=== PATIENT | female | born 1960 | race Caucasian/White ===

== ENCOUNTER 2020-09-23 21:11 | Inpatient (IN) | payer MEDICARE ==
[2020-09-23 21:43] LABS: HEMATOCRIT 16.4 % (36.0-47.0); MEAN CORPUSCULAR HEMOGLOBIN 28.8 pg (27.0-33.4); MEAN CORPUSCULAR HGB CONC 34.6 g/dL (32.0-36.0); MEAN CORPUSCULAR VOLUME 83 fl (80-97); RED BLOOD COUNT 1.98 10^6/uL (3.72-5.28); RED CELL DISTRIBUTION WIDTH 20.1 % (11.5-14.0)
[2020-09-23 21:58] LABS: ALBUMIN 3.8 g/dL (3.5-5.0); ALKALINE PHOSPHATASE 74 U/L (38-126); ANION GAP 14 (5-19); ASPARTATE AMINO TRANSFERASE 28 U/L (14-36); BILIRUBIN,DIRECT 0.2 mg/dL (0.0-0.4); BILIRUBIN,TOTAL 0.6 mg/dL (0.2-1.3); BLOOD UREA NITROGEN 11 mg/dL (7-20); CARBON DIOXIDE 25 mmol/L (22-30); CHLORIDE 91 mmol/L (98-107); CREATINE KINASE 198 U/L (30-135); GLUCOSE 208 mg/dL (75-110); TOTAL PROTEIN 6.5 g/dL (6.3-8.2)
--- NOTE | 2020-09-23 21:59 | ER Document Report ---
ED General - General Chief Complaint: Arrhythmia Stated Complaint: A FIB WITH RVR Time Seen by Provider: 09/23/20 21:44 Notes: Patient is a 60-year-old female who comes emergency department for chief complaint of lightheadedness, weakness, and generalized shortness of breath for the past 4 days. Patient comes by EMS, she was found to have a heart rate in the 170s, she has a history of atrial fibrillation and is on Cardizem at home, she was given 25 mg Cardizem bolus and 750 cc IV fluid bolus. After this heart rate reduced to the 90s. Patient states that she has not been eating much and she has missed doses of her Cardizem over the past day or 2. She is on Pradaxa. Patient also states she has a history of lung cancer and she is currently on chemotherapy following with [facility]. She denies fever, chest pain, headache, abdominal pain. She also has a history of COPD and is on 3 L nasal cannula at all times. - Related Data Allergies/Adverse Reactions: acetaminophen [From Lortab] Allergy (Verified 09/23/20 21:45) hydrocodone [From Lortab] Allergy (Verified 09/23/20 21:45) Past Medical History - General Information source: Patient - Social History Smoking Status: Current Every Day Smoker Frequency of alcohol use: None Drug Abuse: None Lives with: Family Family History: Reviewed & Not Pertinent - Past Medical History Cardiac Medical History: Reports: Hx Atrial Fibrillation Pulmonary Medical History: Reports: Hx COPD Endocrine Medical History: Reports: Hx Diabetes Mellitus Type 2 - Immunizations Immunizations up to date: Yes Hx Diphtheria, Pertussis, Tetanus Vaccination: Yes Review of Systems - Review of Systems Constitutional: See HPI EENT: No symptoms reported Cardiovascular: See HPI Respiratory: See HPI Gastrointestinal: No symptoms reported Genitourinary: No symptoms reported Female Genitourinary: No symptoms reported Musculoskeletal: No symptoms reported Skin: No symptoms reported Hematologic/Lymphatic: No symptoms reported Neurological/Psychological: No symptoms reported Physical Exam - Vital signs Vitals: Resp 20 09/23/20 21:15 - Notes Notes: GENERAL: Slightly pale but alert, conversational, does not appear to be in distress HEAD: Normocephalic, atraumatic. EYES: Pupils equal, round, and reactive to light. Extraocular movements intact. ENT: Oral mucosa moist, tongue midline. Oropharynx unremarkable. Airway patent. Nares patent, sinuses non-tender, ear canals unremarkable, TM's intact. NECK: Full range of motion. Supple. Trachea midline. No lymphadenopathy. LUNGS: Faint rales heard in bilateral lung bases especially on the right. No wheezes or rhonchi. No respiratory distress. Non-tender chest wall. HEART: Irregularly irregular but no tachycardia or bradycardia ABDOMEN: Soft, non-tender. Non-distended. EXTREMITIES: Moves all 4 extremities spontaneously. No edema, normal radial and dorsalis pedis pulses bilaterally. No cyanosis. BACK: no cervical, thoracic, lumbar midline tenderness. No saddle anesthesia, normal distal neurovascular exam. Moves all extremities in full range of motion. NEUROLOGICAL: Alert and oriented x3. Normal speech. Cranial nerves II through XII grossly intact. Strength 5/5 in all extremities. PSYCH: Normal affect, normal mood. SKIN: Warm, dry, normal turgor. No rashes or lesions noted. Course - Re-evaluation Re-evalutation: On my evaluation patient has atrial fibrillation without rapid ventricular response. Blood pressure unremarkable. Vital signs unremarkable otherwise. Questionable minimal rales in lung bases on exam although exam is otherwise unremarkable. Chest x-ray unremarkable. CBC shows significant anemia with hemoglobin of 5.7. Thrombocytopenia noted as well. Patient is on Pradaxa. I did perform rectal exam and this was negative for blood. Chemistry shows hypokalemia at 2.6 and hypomagnesemia 0.6, hypocalcemia as well. QTc is also borderline prolonged. Starting on magnesium and potassium. Starting blood transfusion but I will consult with patient's oncologist first. Discussed with patient. I spoke with Dr. Neil Kenney, oncologist on-call for Dr. Kay who patient follows with at [facility]. Previous hemoglobin was 7.9 two weeks ago, they do recommend blood transfusion of at least 2 units at the very least, electrolyte replacement, admission, state they are available for any other questions if necessary. I discussed with Dr. Ruiz, patient accepted to telemetry full admission. Patient and family state understanding and agreement - Vital Signs Vital signs: Temp Pulse Resp BP Pulse Ox 99.1 F 68 18 140/73 H 94 09/24/20 04:35 09/24/20 04:35 09/24/20 04:35 09/24/20 04:35 09/24/20 04:35 - Laboratory Results Result Diagrams: 09/23/20 21:16 09/23/20 21:16 Laboratory Results Interpreted: 09/23/20 09/23/20 09/23/20 21:16 21:16 21:16 RBC 1.98 L Hgb 5.7 L Hct 16.4 L RDW 20.1 H Plt Count 48 L Band Neutrophils % 2 L Monocytes % (Manual) 23 H PT 16.3 H Sodium 130.0 L Potassium 2.6 L* Chloride 91 L Est GFR (MDRD) Non-Af 53 L Glucose 208 H Calcium 5.4 L* Magnesium Creatine Kinase 198 H NT-Pro-B Natriuret Pep Crossmatch 09/23/20 09/23/20 09/23/20 21:16 21:16 22:19 RBC Hgb Hct RDW Plt Count Band Neutrophils % Monocytes % (Manual) PT Sodium Potassium Chloride Est GFR (MDRD) Non-Af Glucose Calcium Magnesium 0.6 L* Creatine Kinase NT-Pro-B Natriuret Pep 2500 H Crossmatch See Detail Critical Laboratory Results Reviewed: Yes Attending or Supervising Physician who Reviewed Labs: SVEN LAN IV - Radiology Results Critical Radiology Results Reviewed: No Critical Results - EKG Interpretation by Me Additional EKG results interpreted by me: EKG shows atrial fibrillation at a rate of 97, normal axis, inverted T waves anteriorly, PVCs. Lots of artifact present. QTc is 519. Discharge - Discharge Clinical Impression: Atrial fibrillation with RVR, Symptomatic anemia, Hypomagnesemia, Hypokalemia Condition: Stable Disposition: ADMITTED INPATIENT Admitting Provider: Unit Admitted: Telemetry
--- NOTE | 2020-09-23 22:06 | RADIOLOGY REPORT (SQ) ---
CLINICAL INDICATION: pre-op. TECHNIQUE: A single portable AP view was obtained of the chest at 2133 hours. COMPARISON: None available. FINDINGS: The cardiomediastinal silhouette is enlarged. The lungs are grossly clear. No evidence of effusion or pneumothorax. The visualized bones are unremarkable. Mild chronic parenchymal lung change IMPRESSION: No evidence of active intrathoracic disease.
[2020-09-23 22:09] LABS: INTERNATIONAL RATION (INR) 1.29; PROTHROMBIN TIME 16.3 SEC (11.4-15.4)
[2020-09-23 22:30] LABS: CREATINE KINASE MB < 0.22 ng/mL (<4.55)
[2020-09-23 22:34] LABS: CALCIUM 5.4 mg/dL (8.4-10.2); POTASSIUM 2.6 mmol/L (3.6-5.0)
[2020-09-23 22:35] LABS: PLATELET COUNT 48 10^3/uL (150-450)
[2020-09-23 22:36] LABS: HEMOGLOBIN 5.7 g/dL (12.0-15.5)
[2020-09-23 22:42] LABS: ABSOLUTE LYMPHOCYTES# (MANUAL) 1.3 10^3/uL (0.5-4.7); ABSOLUTE MONOCYTES # (MANUAL) 1.2 10^3/uL (0.1-1.4); BAND NEUTROPHILS % (MANUAL) 2 % (3-5); BASOPHILS % (MANUAL) 0 % (0-2); EOSINOPHILS % (MANUAL) 1 % (0-6); LYMPHOCYTES % (MANUAL) 25 % (13-45); MONOCYTES % (MANUAL) 23 % (3-13); NUCLEATED RED BLOOD CELLS 2 /100 WBC (0); SEGMENTED NEUTROPHILS % (MAN) 49 % (42-78); TOTAL CELLS COUNTED 100
[2020-09-23 22:47] LABS: ANISOCYTOSIS 2+; OVALOCYTES 1+; PLATELET COMMENT DECREASED; POLYCHROMASIA SLIGHT
[2020-09-23 22:49] LABS: SCHISTOCYTES SLIGHT
[2020-09-23] MEDS ORDERED: NORMAL SALINE 250 ML IV PRN ×2 (23:09)
[2020-09-23] MEDS: POTASSI CL 20 MEQ/50 ML RIDER 20 MEQ/50 ML RTUPB IV SCH (23:30)
[2020-09-23] MEDS: MAGNESIUM SULFATE/D5W 1 GM/100 ML RTUPB IV SCH (23:33)
[2020-09-24] MEDS ORDERED: POTASSIUM CHLORIDE 20 MEQ PACKET PO ONE ×2 (00:03→04:45)
[2020-09-24] MEDS ORDERED: ALBUTEROL SULFATE 0.083% NEB 2.5 MG/3 ML AMPUL NEB PRN (00:05)
[2020-09-24] MEDS ORDERED: ONDANSETRON HCL INJ/PF 4 MG/2 ML SDV IV PRN (00:05)
[2020-09-24] MEDS ORDERED: DEXTROSE 50%-WATER 25 GM/50 ML DISP.SYRIN IV PRN ×2 (00:13)
[2020-09-24] MEDS ORDERED: DEXTROSE 40% GEL 15 GM TUBE PO PRN ×2 (00:13)
[2020-09-24] MEDS ORDERED: GLUCAGON,HUMAN RECOMB 1 MG INJ IM PRN (00:13)
[2020-09-24] MEDS: MAGNESIUM SULFATE/D5W 1 GM/100 ML RTUPB IV SCH ×3 (00:46→19:23)
[2020-09-24] MEDS: POTASSI CL 20 MEQ/50 ML RIDER 20 MEQ/50 ML RTUPB IV SCH (00:46)
[2020-09-24] MEDS ORDERED: DABIGATRAN ETEXILATE 150 MG CAPSULE PO SCH (01:00)
--- NOTE | 2020-09-24 01:27 | PDOC H&P ---
History of Present Illness Admission Date/PCP: 09/23/20 23:55 STEVE XAVIER MD Patient complains of: Shortness of breath History of Present Illness: MEE LOTT is a 60 year old female She is suffering from multiple medical problems including lung cancer under active chemotherapy, COPD, congestive heart failure secondary to diastolic dysfunction, chronic atrial fibrillation, most likely paroxysmal, she is chronically oxygen dependent with 3 L/min nasal oxygen. For the last 2 days she has progressive shortness of breath. Eventually the shortness of breath got so bad that she requested an ambulance to be called. She received 25 mg intravenous diltiazem from EMS for atrial fibrillation with rapid ventricular response. When she arrived she was feeling better. When EKG was done she was in sinus rhythm. She was found to be significantly anemic and had complex electrolyte imbalance. The patient is receiving active chemotherapy now for couple weeks. She was diagnosed with lung cancer during the fall. She received radiation therapy. She did not have any surgery. The cancer is metastatic to her bone. For the last couple days she lost her appetite. She was barely eating but she was drinking. Because she was not eating much she did not take her insulin. When I saw her she appeared to be chronically deconditioned but she did not appear to be in any acute respiratory distress with nasal oxygen. She had no pain. Past Medical History Cardiac Medical History: Reports: Atrial Fibrillation, Congestive Heart Failure - From the description most likely diastolic dysfunction. Pulmonary Medical History: Reports: Chronic Obstructive Pulmonary Disease (COPD), Respiratory Failure - Chronic hypoxic respiratory failure on chronic oxygen 3 L/min EENT Medical History: Reports: Cataracts, Other - Patient had multiple eye surgeries Neurological Medical History: Reports: None Endocrine Medical History: Reports: Diabetes Mellitus Type 2 Malignancy Medical History: Reports: Lung Cancer - Metastatic disease to the bone GI Medical History: Reports: None Musculoskeltal Medical History: Reports: Arthritis Psychiatric Medical History: Reports: None Hematology: Reports: Anemia Infectious Medical History: Reports: None Past Surgical History Past Surgical History: Reports: Hysterectomy, Tonsillectomy Social History Lives with: Family Smoking Status: Current Every Day Smoker Family History Family History: CAD Parental Family History Reviewed: Yes Children Family History Reviewed: Yes Sibling(s) Family History Reviewed.: Yes Medication/Allergy Allergies/Adverse Reactions: acetaminophen [From Lortab] Allergy (Verified 09/23/20 21:45) hydrocodone [From Lortab] Allergy (Verified 09/23/20 21:45) Review of Systems Constitutional: PRESENT: other - Obese with a BMI of 33 Eyes: ABSENT: visual disturbances Ears: ABSENT: hearing changes Respiratory: PRESENT: dyspnea - She has chronic shortness of breath now she had acute component.. ABSENT: cough, hemoptysis Gastrointestinal: ABSENT: abdominal pain, constipation, diarrhea, hematemesis, hematochezia, nausea, vomiting Genitourinary: ABSENT: dysuria, hematuria Integumentary: ABSENT: rash, wounds Neurological: ABSENT: abnormal gait, abnormal speech, confusion, dizziness, focal weakness, syncope Endocrine: ABSENT: cold intolerance, heat intolerance, polydipsia, polyuria Hematologic/Lymphatic: ABSENT: easy bleeding, easy bruising Physical Exam Vital Signs: Temp Pulse Resp BP Pulse Ox 98.6 F 89 21 H 119/64 100 09/23/20 21:26 09/23/20 21:26 09/23/20 22:02 09/23/20 22:02 09/23/20 22:02 Intake & Output 09/22/20 09/23/20 09/24/20 06:59 06:59 06:59 Intake Total 132 Balance 132 Weight 79.407 kg General appearance: PRESENT: cooperative, mild distress, obese Head exam: PRESENT: atraumatic Eye exam: PRESENT: conjunctiva pink, EOMI, PERRLA. ABSENT: scleral icterus Ear exam: PRESENT: normal external ear exam Mouth exam: PRESENT: moist Neck exam: ABSENT: carotid bruit, JVD, lymphadenopathy, thyromegaly Respiratory exam: PRESENT: crackles Cardiovascular exam: PRESENT: RRR. ABSENT: diastolic murmur, rubs, systolic murmur Pulses: PRESENT: normal dorsalis pedis pul Vascular exam: PRESENT: normal capillary refill GI/Abdominal exam: PRESENT: normal bowel sounds, soft, other - Obese abdominal wall. ABSENT: distended, guarding, mass, organolmegaly, rebound, tenderness Rectal exam: PRESENT: other - Done by the emergency department physician, heme-negative stool was reported. Extremities exam: ABSENT: pedal edema, +1 edema, +2 edema Musculoskeletal exam: PRESENT: ambulatory Neurological exam: PRESENT: alert, awake, oriented to person, oriented to place, oriented to time, oriented to situation, CN II-XII grossly intact. ABSENT: motor sensory deficit Psychiatric exam: PRESENT: appropriate affect, normal mood. ABSENT: homicidal ideation, suicidal ideation Skin exam: ABSENT: rash Results Laboratory Results: 09/23/20 21:16 09/23/20 21:16 09/23/20 09/23/20 09/23/20 21:16 21:16 21:16 WBC 5.0 RBC 1.98 L Hgb 5.7 L Hct 16.4 L MCV 83 MCH 28.8 MCHC 34.6 RDW 20.1 H Plt Count 48 L Seg Neutrophils % Not Reportable Sodium 130.0 L Potassium 2.6 L* Chloride 91 L Carbon Dioxide 25 Anion Gap 14 BUN 11 Creatinine 1.06 Est GFR ( Amer) > 60 Glucose 208 H Calcium 5.4 L* Magnesium 0.6 L* Total Bilirubin 0.6 AST 28 Alkaline Phosphatase 74 Total Protein 6.5 Albumin 3.8 TSH Blood Type Antibody Screen 09/23/20 09/23/20 21:16 22:19 WBC RBC Hgb Hct MCV MCH MCHC RDW Plt Count Seg Neutrophils % Sodium Potassium Chloride Carbon Dioxide Anion Gap BUN Creatinine Est GFR ( Amer) Glucose Calcium Magnesium Total Bilirubin AST Alkaline Phosphatase Total Protein Albumin TSH 1.82 Blood Type O POSITIVE Antibody Screen NEGATIVE 09/23/20 09/23/20 09/23/20 21:16 21:16 21:16 Creatine Kinase 198 H CK-MB (CK-2) < 0.22 Troponin I 0.030 NT-Pro-B Natriuret Pep 2500 H Impressions: Chest X-Ray 09/23/20 21:19 IMPRESSION: No evidence of active intrathoracic disease. Assessment and Plan - Diagnosis (1) Shortness of breath Is this a current diagnosis for this admission?: Yes Plan: She has chronic shortness of breath on chronic oxygen 3 L/min with nasal cannula. The acute shortness of breath was probably related to worsening anemia. She has very poor exercise tolerance. She has chronic congestive heart failure, advanced COPD, lung cancer, worsening anemia. The shortness of breath is multifactorial. (2) Chronic respiratory failure with hypoxia Is this a current diagnosis for this admission?: Yes Plan: Continue nasal oxygen 3 L/min. (3) Symptomatic anemia Is this a current diagnosis for this admission?: Yes Plan: She is going to receive 2 units of packed red blood cell transfusion. If necessary additional blood transfusions. Her stool was heme-negative but she has very high risk for bleeding. She has thrombocytopenia. I am going to hold dabigatran. DVT prophylaxis with compression device. (4) Pancytopenia Is this a current diagnosis for this admission?: Yes Plan: She has anemia, thrombocytopenia, mild neutropenia. This is related to chemotherapy. Continue monitoring. (5) Hypokalemia Is this a current diagnosis for this admission?: Yes Plan: May be contributing to weakness. Potassium replacement. This is probably relat ed to aggressive diuretic therapy. Hold furosemide for now. (6) Hypomagnesemia Is this a current diagnosis for this admission?: Yes Plan: Magnesium replacement. This is most likely due to diuretic therapy. (7) Hypocalcemia Is this a current diagnosis for this admission?: Yes Plan: Asymptomatic. Start oral calcium supplement. If necessary intravenous calcium gluconate. (8) Atrial fibrillation with RVR Is this a current diagnosis for this admission?: Yes Plan: Now she is in sinus rhythm. She has chronic paroxysmal atrial fibrillation. She was on dabigatran which is going to be on hold now. Continue diltiazem. (9) CHF, chronic Qualifiers: Heart failure type: diastolic Qualified Code(s): I50.32 - Chronic diastolic (congestive) heart failure Is this a current diagnosis for this admission?: Yes Plan: Most likely chronic diastolic heart failure. I do not have echocardiogram report for review. Hold furosemide for now. The patient has significant com plex electrolyte imbalance. Monitor volume status. The patient appears to be euvolemic. (10) COPD (chronic obstructive pulmonary disease) Qualifiers: COPD type: unspecified COPD Qualified Code(s): J44.9 - Chronic obstructive pulmonary disease, unspecified Is this a current diagnosis for this admission?: Yes Plan: Continue long-acting inhaler. Nebulizer treatment as needed. (11) Diabetes mellitus Qualifiers: Diabetes mellitus type: type 2 Diabetes mellitus continuous churn buttermaker insulin use: with usp use Diabetes mellitus complication status: without complication Qualified Code(s): E11.9 - Type 2 diabetes mellitus without complications; Z79.4 - FPC (current) use of insulin Is this a current diagnosis for this admission?: Yes Plan: Hold Metformin. Reduce Lantus insulin dose to avoid hypoglycemia. Monitor blood sugar, correction dose insulin as needed. (12) Metastatic cancer to lung Qualifiers: Laterality: unspecified laterality Qualified Code(s): C78.00 - Secondary malignant neoplasm of unspecified lung Is this a current diagnosis for this admission?: Yes Plan: Patient is receiving active chemotherapy. Her oncologist was contacted by the emergency department provider. - Plan Summary Summary: Patient was admitted with significant symptomatic anemia and complex electrolyte imbalance to telemetry unit. She has pancytopenia related to chemotherapy. She is going to receive blood transfusion. She has no sign of active bleeding but she is thrombocytopenic and her hemoglobin significantly dropped therefore Pradaxa is going to be on hold. Blood count is going to be monitored. Electrolytes will be replaced. Furosemide was put on hold, she has no sign of active heart failure. She knew most of her medications but not all of them. Full medication reconciliation will be completed in the morning. - Time Time Spent with patient: 35 or more minutes Anticipated Discharge Disposition: Home, Self Care Anticipated Discharge Timeframe: within 72 hours - Inpatient Certification Based on my medical assessment, after consideration of the patient's comorbidities, presenting symptoms, or acuity I expect that the services needed warrant INPATIENT care.: Yes I certify that my determination is in accordance with my understanding of Medicare's requirements for reasonable and necessary INPATIENT services [42 CFR 412.3e].: Yes Medical Necessity: Failure to Improve With Outpatient Therapy, Need For Continuous Telemetry Monitoring, Risk of Complication if Not Cared For in Hospital
[2020-09-24] MEDS: INSULIN LISPRO 100 UNIT/ML 3 ML VIAL SUBCUT SCH ×4 (09:38→21:57)
[2020-09-24] MEDS: DILTIAZEM HCL 240 MG CAPSULE.CR PO SCH (11:23)
[2020-09-24] MEDS: INSULIN GLARGINE,HUM.REC.ANLOG 1,000 UNIT/10 ML VIAL SUBCUT SCH (14:26)
[2020-09-24] MEDS ORDERED: INSULIN GLARGINE,HUM.REC.ANLOG 1,000 UNIT/10 ML VIAL (PYX) SUBCUT ONE ×2 (14:30→15:42)
[2020-09-24 15:20] LABS: HEMATOCRIT 26.7 % (36.0-47.0); MEAN CORPUSCULAR HEMOGLOBIN 30.1 pg (27.0-33.4); MEAN CORPUSCULAR VOLUME 86 fl (80-97); RED BLOOD COUNT 3.11 10^6/uL (3.72-5.28); RED CELL DISTRIBUTION WIDTH 17.6 % (11.5-14.0); WHITE BLOOD COUNT 7.1 10^3/uL (4.0-10.5)
[2020-09-24 15:31] LABS: ALBUMIN 3.8 g/dL (3.5-5.0); ALKALINE PHOSPHATASE 85 U/L (38-126); ANION GAP 12 (5-19); ASPARTATE AMINO TRANSFERASE 28 U/L (14-36); BILIRUBIN,DIRECT 0.3 mg/dL (0.0-0.4); BILIRUBIN,TOTAL 0.9 mg/dL (0.2-1.3); BLOOD UREA NITROGEN 12 mg/dL (7-20); CARBON DIOXIDE 26 mmol/L (22-30); CHLORIDE 94 mmol/L (98-107); GLUCOSE 153 mg/dL (75-110); TOTAL PROTEIN 6.7 g/dL (6.3-8.2)
[2020-09-24 15:39] LABS: HEMOGLOBIN 9.4 g/dL (12.0-15.5); PLATELET COUNT 45 10^3/uL (150-450)
[2020-09-24 15:47] LABS: ABSOLUTE LYMPHOCYTES# (MANUAL) 1.1 10^3/uL (0.5-4.7); ABSOLUTE MONOCYTES # (MANUAL) 0.9 10^3/uL (0.1-1.4); BAND NEUTROPHILS % (MANUAL) 2 % (3-5); BASOPHILS % (MANUAL) 0 % (0-2); EOSINOPHILS % (MANUAL) 0 % (0-6); LYMPHOCYTES % (MANUAL) 16 % (13-45); METAMYELOCYTES % (MANUAL) 1 % (0-1); MONOCYTES % (MANUAL) 12 % (3-13); NUCLEATED RED BLOOD CELLS 1 /100 WBC (0); SEGMENTED NEUTROPHILS % (MAN) 69 % (42-78); TOTAL CELLS COUNTED 100
[2020-09-24 15:49] LABS: CALCIUM 5.4 mg/dL (8.4-10.2); POTASSIUM 3.7 mmol/L (3.6-5.0)
[2020-09-24 15:51] LABS: ANISOCYTOSIS 1+; OVALOCYTES 1+; PLATELET COMMENT DECREASED; POLYCHROMASIA SLIGHT
--- NOTE | 2020-09-24 17:21 | PDOC PROGRESS REPORT ---
Subjective Date:: 09/24/20 Subjective:: The patient is a 60-year-old female with a past medical history significant for lung cancer undergoing active chemotherapy (last dose 3 weeks ago), COPD, diastolic CHF, home O2 dependent at 3 L/min, chronic atrial fibrillation, insulin dependent diabetes mellitus, arthritis, and morbid obesity who was admitted 09/23/2020 with shortness of breath, pancytopenia, and multiple elect rolyte derangements. Of note; patient returned from [place] 6 days ago; should she develop URI symptoms will need to obtain Covid testing. Patient was seen on morning rounds. She was found resting bed, comfortably, on her baseline oxygen requirement of 3 lpm. She reports generalized sense of feeling unwell, anorexia, and fatigue. She reports that her symptoms began during the last day of her trip and have gradually worsened. She denies known sick contacts/family members. She further denies fever, chills, chest pain, palpitations, cough, changes to taste/smell, abd pain, nausea and vomiting. She has no questions or concerns at this time. No concerns per nursing. Reason For Visit: ATRIAL FIBRILATION WITH RVR,SYMPTOMATIC ANEMIA Physical Exam Vital Signs: Temp Pulse Resp BP Pulse Ox 97.3 F 75 19 141/87 H 99 09/24/20 12:35 09/24/20 12:35 09/24/20 12:35 09/24/20 12:35 09/24/20 12:35 Intake & Output 09/23/20 09/24/20 09/25/20 06:59 06:59 06:59 Intake Total 1173 300 Balance 1173 300 Weight 92.5 kg General appearance: PRESENT: no acute distress, cooperative, morbidly obese, well-developed, well-nourished Head exam: PRESENT: atraumatic, normocephalic Eye exam: PRESENT: conjunctiva pink, EOMI, PERRLA. ABSENT: scleral icterus Mouth exam: PRESENT: moist, tongue midline Teeth exam: PRESENT: poor dentation Respiratory exam: PRESENT: clear to auscultation chad, symmetrical, unlabored, other - baseline oxygen. ABSENT: rales, rhonchi, wheezes Cardiovascular exam: PRESENT: RRR, +S1, +S2. ABSENT: diastolic murmur, rubs, systolic murmur Pulses: PRESENT: normal dorsalis pedis pul Vascular exam: PRESENT: normal capillary refill GI/Abdominal exam: PRESENT: normal bowel sounds, soft. ABSENT: distended, guarding, mass, organolmegaly, rebound, tenderness Rectal exam: PRESENT: deferred Extremities exam: PRESENT: full ROM, pedal edema - bilateral. ABSENT: calf tenderness, clubbing Neurological exam: PRESENT: alert, awake, oriented to person, oriented to place, oriented to time, oriented to situation, CN II-XII grossly intact. ABSENT: motor sensory deficit Psychiatric exam: PRESENT: appropriate affect, normal mood. ABSENT: homicidal ideation, suicidal ideation Skin exam: PRESENT: dry, intact, warm. ABSENT: cyanosis, rash Results Laboratory Results: 09/24/20 14:54 09/24/20 14:54 09/23/20 09/23/20 09/23/20 21:16 21:16 21:16 WBC 5.0 RBC 1.98 L Hgb 5.7 L Hct 16.4 L MCV 83 MCH 28.8 MCHC 34.6 RDW 20.1 H Plt Count 48 L Seg Neutrophils % Not Reportable Sodium 130.0 L Potassium 2.6 L* Chloride 91 L Carbon Dioxide 25 Anion Gap 14 BUN 11 Creatinine 1.06 Est GFR ( Amer) > 60 Est GFR (Non-Af Amer) Glucose 208 H Calcium 5.4 L* Phosphorus Magnesium 0.6 L* Total Bilirubin 0.6 AST 28 Alkaline Phosphatase 74 Total Protein 6.5 Albumin 3.8 TSH Blood Type Antibody Screen 09/23/20 09/23/20 09/24/20 21:16 22:19 14:54 WBC RBC Hgb Hct MCV MCH MCHC RDW Plt Count Seg Neutrophils % Sodium 131.8 L Potassium 3.7 D Chloride 94 L Carbon Dioxide 26 Anion Gap 12 BUN 12 Creatinine 1.01 Est GFR ( Amer) > 60 Est GFR (Non-Af Amer) Glucose 153 H Calcium 5.4 L* Phosphorus 2.0 L Magnesium 1.4 L Total Bilirubin 0.9 AST 28 Alkaline Phosphatase 85 Total Protein 6.7 Albumin 3.8 TSH 1.82 Blood Type O POSITIVE Antibody Screen NEGATIVE 09/24/20 09/24/20 09/24/20 14:54 14:54 14:54 WBC 7.1 RBC 3.11 L Hgb 9.4 L D Hct 26.7 L MCV 86 MCH 30.1 MCHC 35.0 RDW 17.6 H Plt Count 45 L Seg Neutrophils % Not Reportable Sodium Cancelled Potassium Cancelled Chloride Cancelled Carbon Dioxide Cancelled Anion Gap Cancelled BUN Cancelled Creatinine Cancelled Est GFR ( Amer) Cancelled Est GFR (Non-Af Amer) Cancelled Glucose Cancelled Calcium Cancelled Phosphorus Magnesium Total Bilirubin Cancelled AST Cancelled Alkaline Phosphatase Cancelled Total Protein Cancelled Albumin Cancelled TSH 1.73 Blood Type Antibody Screen 09/23/20 09/23/20 09/23/20 21:16 21:16 21:16 Creatine Kinase 198 H CK-MB (CK-2) < 0.22 Troponin I 0.030 NT-Pro-B Natriuret Pep 2500 H Impressions: Chest X-Ray 09/23/20 21:19 IMPRESSION: No evidence of active intrathoracic disease. Assessment and Plan - Diagnosis (1) Symptomatic anemia Is this a current diagnosis for this admission?: Yes Plan: Hgb 5.7-> 9.4 Now s/p 2 units PRBC Occult stool negative. Cautiously resume Pradaxa. Follow up CBC. Outpatient follow up w/ established Heme/Onc. (2) Pancytopenia Is this a current diagnosis for this admission?: Yes Plan: She has anemia, thrombocytopenia, mild neutropenia. This is related to chemotherapy. Hgb 5.7-> 9.4 s/p PRBC transfusion. Plt stable 48-> 45 Continue monitoring. Outpatient follow up w/ established Heme/Onc. (3) Atrial fibrillation with RVR Is this a current diagnosis for this admission?: Yes Plan: Now she is in sinus rhythm. She has chronic paroxysmal atrial fibrillation. Monitor on telemetry. Continue home dose Diltiazem and Pradaxa. (4) CHF, chronic Qualifiers: Heart failure type: diastolic Qualified Code(s): I50.32 - Chronic diastolic (congestive) heart failure Is this a current diagnosis for this admission?: Yes Plan: Most likely chronic diastolic heart failure. No prior echocardiogram report for review. proBNP 2500 CXR is clear The patient has significant complex electrolyte imbalance; replacements as below. Monitor volume status. The patient appears to be euvolemic. Resume lower dose Toprol 25 mg q12. Takes 100 mg daily at home. Increase dose as tolerated. Resume furosemide 20 mg qAM. Daily weights. (5) COPD (chronic obstructive pulmonary disease) Qualifiers: COPD type: unspecified COPD Qualified Code(s): J44.9 - Chronic obstructive pulmonary disease, unspecified Is this a current diagnosis for this admission?: Yes Plan: Stable and without exacerbation at this time. Continue long-acting inhaler. Continue home dose oxygen. Nebulizer treatment as needed. Encourage pulmonary toilet with incentive spirometer, flutter valve, and ambulation. (6) Chronic respiratory failure with hypoxia Is this a current diagnosis for this admission?: Yes Plan: Continue nasal oxygen 3 L/min. (7) Diabetes mellitus Qualifiers: Diabetes mellitus type: type 2 Diabetes mellitus rn long term care insulin use: wi rn long term care use Diabetes mellitus complication status: without complication Qualified Code(s): E11.9 - Type 2 diabetes mellitus without complications; Z79.4 - care home (current) use of insulin Is this a current diagnosis for this admission?: Yes Plan: A1C 5.4% Hold Metformin. Reduce Lantus insulin dose to avoid hypoglycemia. Patient is placed on a consistent carb diet. Accu-Cheks before meals and at bedtime with Humalog for sliding scale coverage. Hypoglycemia protocol in place. (8) Hypocalcemia Is this a current diagnosis for this admission?: Yes Plan: Asymptomatic. IV followed by oral replacement. Follow up chemistry (9) Hypokalemia Is this a current diagnosis for this admission?: Yes Plan: Replete. Follow up chemistry. (10) Hypomagnesemia Is this a current diagnosis for this admission?: Yes Plan: This is most likely due to diuretic therapy and reported poor oral intake x 1 week. Improved; magnesium 0.6-> 1.4 Additional IV replacement today. Likely oral maintenance magnesium at discharge. (11) Metastatic cancer to lung Qualifiers: Laterality: unspecified laterality Qualified Code(s): C78.00 - Secondary malignant neoplasm of unspecified lung Is this a current diagnosis for this admission?: Yes Plan: Patient is receiving active chemotherapy. Her oncologist was contacted by the emergency department provider. Outpatient follow up with established Oncologist. (12) Shortness of breath Is this a current diagnosis for this admission?: Yes Plan: Acute worsening of baseline dyspnea has resolved. She has chronic shortness of breath on chronic oxygen 3 L/min with nasal cannula. Related to chronic congestive heart failure, advanced COPD, lung cancer, worse diogo anemia. CXR is benign. Remaining management as above. - Time Time Spent with patient: 35 or more minutes Medications reviewed and adjusted accordingly: Yes Anticipated Discharge Disposition: Home, Self Care Anticipated Discharge Timeframe: within 48 hours
[2020-09-24] MEDS ORDERED: POTASSIUM PHOS,M-BASIC-D-BASIC 15 MMOL in NORMAL SALINE 250 ML IV ONE (18:00)
[2020-09-24] MEDS ORDERED: NYSTATIN 100000 UNIT/ML PO SCH (18:00)
[2020-09-24] MEDS: NYSTATIN 500000 UNIT/5 ML UDCUP PO SCH ×2 (18:12→21:53)
[2020-09-24] MEDS: MIRTAZAPINE 15 MG TABLET PO SCH (21:53)
[2020-09-24] MEDS: ATORVASTATIN CALCIUM 10 MG TABLET PO SCH (21:53)
[2020-09-24] MEDS: METOPROLOL SUCCINATE 25 MG TAB.SR.24H PO SCH (21:53)
[2020-09-24] MEDS: DABIGATRAN ETEXILATE 150 MG CAPSULE PO SCH (21:56)
[2020-09-24] MEDS: QUETIAPINE FUMARATE 100 MG TABLET PO SCH (21:56)
--- NOTE | 2020-09-25 00:21 | EKG REPORT ---
SEVERITY:- ABNORMAL ECG - PROBABLE SINUS CAN NOT R/O ACCELERATED JUNCTIONAL RHYTHM ABNORMAL T, CONSIDER ISCHEMIA, DIFFUSE LEADS BASELINE ARTIFACTS REC REPEAT EKG : Confirmed by: Angelica Peña 25-Sep-2020 00:19:38
--- NOTE | 2020-09-25 00:21 | EKG REPORT ---
SEVERITY:- ABNORMAL ECG - ATRIAL FIBRILLATION, V-RATE 80-90 VENTRICULAR PREMATURE COMPLEXES REPOL ABNRM SUGGESTS ISCHEMIA, ANT-LAT LEADS BORDERLINE PROLONGED QT INTERVAL : Confirmed by: Angelica Peña 25-Sep-2020 00:20:10
[2020-09-25] MEDS: CALCIUM GLUC IN NACL, ISO-OSM 1 GM/50 ML RTUPB IV SCH ×4 (00:36→01:46)
[2020-09-25] MEDS ORDERED: ALPRAZOLAM 0.5 MG TABLET PO PRN (01:25)
[2020-09-25 05:37] LABS: HEMATOCRIT 24.5 % (36.0-47.0); HEMOGLOBIN 8.7 g/dL (12.0-15.5); MEAN CORPUSCULAR HEMOGLOBIN 30.5 pg (27.0-33.4); MEAN CORPUSCULAR HGB CONC 35.6 g/dL (32.0-36.0); MEAN CORPUSCULAR VOLUME 86 fl (80-97); RED BLOOD COUNT 2.87 10^6/uL (3.72-5.28); RED CELL DISTRIBUTION WIDTH 17.8 % (11.5-14.0); WHITE BLOOD COUNT 6.7 10^3/uL (4.0-10.5)
[2020-09-25 06:24] LABS: ALBUMIN 3.3 g/dL (3.5-5.0); ALKALINE PHOSPHATASE 86 U/L (38-126); ANION GAP 12 (5-19); ASPARTATE AMINO TRANSFERASE 29 U/L (14-36); BILIRUBIN,DIRECT 0.4 mg/dL (0.0-0.4); BILIRUBIN,TOTAL 0.7 mg/dL (0.2-1.3); BLOOD UREA NITROGEN 11 mg/dL (7-20); CARBON DIOXIDE 25 mmol/L (22-30); CHLORIDE 96 mmol/L (98-107); GLUCOSE 132 mg/dL (75-110); PHOSPHORUS 2.7 mg/dL (2.5-4.5); TOTAL PROTEIN 6.1 g/dL (6.3-8.2)
[2020-09-25 06:31] LABS: CALCIUM 5.6 mg/dL (8.4-10.2)
[2020-09-25] MEDS ORDERED: CALCIUM GLUCONATE 1000 MG/10 ML INJ IV ONE ×2 (06:32→06:43)
[2020-09-25] MEDS ORDERED: POTASSI CL 20 MEQ/50 ML RIDER 20 MEQ/50 ML RTUPB IV ONE (06:34)
[2020-09-25] MEDS ORDERED: POTASSIUM CHLORIDE 20 MEQ PACKET PO ONE (06:35)
[2020-09-25 06:48] LABS: BASOPHILS % (MANUAL) 0 % (0-2); EOSINOPHILS % (MANUAL) 0 % (0-6)
[2020-09-25 06:50] LABS: ABSOLUTE LYMPHOCYTES# (MANUAL) 0.9 10^3/uL (0.5-4.7); ABSOLUTE MONOCYTES # (MANUAL) 0.9 10^3/uL (0.1-1.4); LYMPHOCYTES % (MANUAL) 13 % (13-45); METAMYELOCYTES % (MANUAL) 1 % (0-1); MONOCYTES % (MANUAL) 13 % (3-13); SEGMENTED NEUTROPHILS % (MAN) 73 % (42-78); TOTAL CELLS COUNTED 100
[2020-09-25 06:56] LABS: TOXIC GRANULATION 1+
[2020-09-25 06:57] LABS: ANISOCYTOSIS 1+; OVALOCYTES 1+; PLATELET COMMENT DECREASED; POIKILOCYTOSIS 1+; TEAR DROP CELLS SLIGHT
[2020-09-25 06:58] LABS: PLATELET COUNT 38 10^3/uL (150-450)
[2020-09-25] MEDS ORDERED: CALCIUM GLUC IN NACL ISO OSM IV ONE (08:25)
[2020-09-25] MEDS: CALCIUM CARBONATE 500 MG TAB.CHEW PO SCH ×4 (08:30→22:06)
[2020-09-25] MEDS: INSULIN LISPRO 100 UNIT/ML 3 ML VIAL SUBCUT SCH ×4 (08:32→22:07)
[2020-09-25] MEDS ORDERED: FUROSEMIDE 20 MG TABLET PO SCH (10:00)
[2020-09-25] MEDS ORDERED: QUETIAPINE FUMARATE 100 MG TABLET PO SCH (10:00)
[2020-09-25] MEDS ORDERED: MIRTAZAPINE 15 MG TABLET PO SCH (10:00)
[2020-09-25] MEDS ORDERED: QUETIAPINE FUMARATE 300 MG PO SCH (10:00)
[2020-09-25] MEDS: METOPROLOL SUCCINATE 25 MG TAB.SR.24H PO SCH ×2 (11:15→22:05)
[2020-09-25] MEDS: FOLIC ACID 1 MG TABLET PO SCH (11:15)
[2020-09-25] MEDS: DILTIAZEM HCL 240 MG CAPSULE.CR PO SCH (11:15)
[2020-09-25] MEDS: INSULIN GLARGINE,HUM.REC.ANLOG 1,000 UNIT/10 ML VIAL SUBCUT SCH (11:16)
[2020-09-25] MEDS: NYSTATIN 500000 UNIT/5 ML UDCUP PO SCH ×6 (11:17→22:11)
[2020-09-25] MEDS: CALCIUM CARBONATE 600 MG/VITAMIN D3 400 UNIT TABLET PO SCH ×2 (11:17→17:19)
[2020-09-25] MEDS: DABIGATRAN ETEXILATE 150 MG CAPSULE PO SCH ×2 (11:17→22:04)
[2020-09-25 13:09] LABS: ANION GAP 14 (5-19); BLOOD UREA NITROGEN 12 mg/dL (7-20); CARBON DIOXIDE 20 mmol/L (22-30); CHLORIDE 97 mmol/L (98-107); GLUCOSE 245 mg/dL (75-110); POTASSIUM 3.7 mmol/L (3.6-5.0)
[2020-09-25 13:27] LABS: CALCIUM 6.1 mg/dL (8.4-10.2)
[2020-09-25 14:27] LABS: C DIFFICILE GDH NEGATIVE (NEGATIVE)
--- NOTE | 2020-09-25 18:08 | PDOC PROGRESS REPORT ---
Subjective Date:: 09/25/20 Subjective:: The patient is a 60-year-old female with a past medical history significant for lung cancer undergoing active chemotherapy (last dose 3 weeks ago), COPD, diastolic CHF, home O2 dependent at 3 L/min, chronic atrial fibrillation, insulin dependent diabetes mellitus, arthritis, and morbid obesity who was admitted 09/23/2020 with shortness of breath, pancytopenia, and multiple elect rolyte derangements. Patient was seen on afternoon rounds. She was found sitting up to the recliner, comfortably, on her baseline oxygen requirement of 2.5 lpm. Per nursing, patient has had multiple episodes of diarrhea today. Given the patient's report of generalized fatigue, weakness, body aches, poor appetite, decreased sense of taste and recent high risk travel out of [facility], she was tested for COVID. Fortunately, test was negative. Patient was confrontational/argumentative today (upset regarding covid test and demands to be discharged). Upon rolling her eyes numerous times and body posturing that was dismissive; our discussion was concluded. Nursing is advised that patient does not meet for discharge at this time and that she would need to elect to leave AMA. Reason For Visit: ATRIAL FIBRILATION WITH RVR,SYMPTOMATIC ANEMIA Physical Exam Vital Signs: Temp Pulse Resp BP Pulse Ox 98.1 F 81 20 131/82 H 100 09/25/20 12:17 09/25/20 14:00 09/25/20 12:17 09/25/20 12:17 09/25/20 12:17 Intake & Output 09/24/20 09/25/20 09/26/20 06:59 06:59 06:59 Intake Total 1173 1690 727 Balance 1173 1690 727 Weight 92.5 kg 92.5 kg General appearance: PRESENT: no acute distress, obese, well-developed, well- nourished Head exam: PRESENT: atraumatic, normocephalic Eye exam: PRESENT: conjunctiva pink, EOMI, PERRLA. ABSENT: scleral icterus Mouth exam: PRESENT: moist Respiratory exam: PRESENT: symmetrical, unlabored, other - baseline oxygen Extremities exam: PRESENT: full ROM. ABSENT: pedal edema Musculoskeletal exam: PRESENT: ambulatory Neurological exam: PRESENT: alert, awake, oriented to person, oriented to place, oriented to time, oriented to situation, CN II-XII grossly intact. ABSENT: motor sensory deficit Psychiatric exam: PRESENT: agitated Skin exam: PRESENT: dry, intact, warm. ABSENT: cyanosis, rash Results Laboratory Results: 09/25/20 05:14 09/25/20 12:08 09/25/20 09/25/20 09/25/20 05:14 05:14 05:14 WBC 6.7 RBC 2.87 L Hgb 8.7 L Hct 24.5 L MCV 86 MCH 30.5 MCHC 35.6 RDW 17.8 H Plt Count 38 L Seg Neutrophils % Not Reportable Sodium 133.3 L Potassium 2.8 L* Chloride 96 L Carbon Dioxide 25 Anion Gap 12 BUN 11 Creatinine 0.89 Est GFR ( Amer) > 60 Est GFR (Non-Af Amer) Glucose 132 H Calcium 5.6 L* Phosphorus 2.7 Magnesium 1.9 Total Bilirubin 0.7 AST 29 Alkaline Phosphatase 86 Total Protein 6.1 L Albumin 3.3 L TSH 1.66 Stool for White Cells 09/25/20 09/25/20 09/25/20 05:14 12:08 12:39 WBC RBC Hgb Hct MCV MCH MCHC RDW Plt Count Seg Neutrophils % Sodium Cancelled 130.9 L Potassium Cancelled 3.7 Chloride Cancelled 97 L Carbon Dioxide Cancelled 20 L Anion Gap Cancelled 14 BUN Cancelled 12 Creatinine Cancelled 0.98 Est GFR ( Amer) Cancelled > 60 Est GFR (Non-Af Amer) Cancelled Glucose Cancelled 245 H Calcium Cancelled 6.1 L* Phosphorus Magnesium Cancelled 1.8 Total Bilirubin AST Alkaline Phosphatase Total Protein Albumin TSH Stool for White Cells NO WBCs SEEN 09/23/20 09/23/20 09/23/20 21:16 21:16 21:16 Creatine Kinase 198 H CK-MB (CK-2) < 0.22 Troponin I 0.030 NT-Pro-B Natriuret Pep 2500 H Impressions: Chest X-Ray 09/23/20 21:19 IMPRESSION: No evidence of active intrathoracic disease. Assessment and Plan - Diagnosis (1) Symptomatic anemia Is this a current diagnosis for this admission?: Yes Plan: Hgb 5.7-> 9.4-> 8.7 Now s/p 2 units PRBC Occult stool negative. Have resumed Pradaxa. Follow up CBC. Outpatient follow up w/ established Heme/Onc. (2) Pancytopenia Is this a current diagnosis for this admission?: Yes Plan: She has anemia, thrombocytopenia, mild neutropenia. This is related to chemotherapy. Hgb 5.7-> 9.40 s/p PRBC transfusion -> 8.7 Plt stable 48-> 45-> 38 Continue monitoring. Outpatient follow up w/ established Heme/Onc. (3) Atrial fibrillation with RVR Is this a current diagnosis for this admission?: Yes Plan: Now she is in sinus rhythm. She has chronic paroxysmal atrial fibrillation. Monitor on telemetry. Continue home dose Diltiazem and Pradaxa. (4) CHF, chronic Qualifiers: Heart failure type: diastolic Qualified Code(s): I50.32 - Chronic diastolic (congestive) heart failure Is this a current diagnosis for this admission?: Yes Plan: Most likely chronic diastolic heart failure. No prior echocardiogram report for review. proBNP 2500 CXR is clear The patient has significant complex electrolyte imbalance; replacements as below. Monitor volume status. The patient appears to be euvolemic. Resume lower dose Toprol 25 mg q12. Takes 100 mg daily at home. Increase dose as tolerated. Resume furosemide 20 mg qAM. Daily weights. (5) COPD (chronic obstructive pulmonary disease) Qualifiers: COPD type: unspecified COPD Qualified Code(s): J44.9 - Chronic obstructive pulmonary disease, unspecified Is this a current diagnosis for this admission?: Yes Plan: Stable and without exacerbation at this time. Continue long-acting inhaler. Continue home dose oxygen. Nebulizer treatment as needed. Encourage pulmonary toilet with incentive spirometer, flutter valve, and ambul ation. (6) Chronic respiratory failure with hypoxia Is this a current diagnosis for this admission?: Yes Plan: Continue nasal oxygen 3 L/min. 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 Reduce Lantus insulin dose to avoid hypoglycemia. Patient is placed on a consistent carb diet. Accu-Cheks before meals and at bedtime with Humalog for sliding scale coverage. Hypoglycemia protocol in place. (8) Hypocalcemia Is this a current diagnosis for this admission?: Yes Plan: Trending up; 5.4-> 5.6-> 6.1 Asymptomatic. IV followed by oral replacement. Follow up chemistry (9) Hypokalemia Is this a current diagnosis for this admission?: Yes Plan: Replete. Follow up chemistry. (10) Hypomagnesemia Is this a current diagnosis for this admission?: Yes Plan: Replete; magnesium 0.6-> 1.4-> 1.8 (11) Metastatic cancer to lung Qualifiers: Laterality: unspecified laterality Qualified Code(s): C78.00 - Secondary malignant neoplasm of unspecified lung Is this a current diagnosis for this admission?: Yes Plan: Patient is receiving active chemotherapy. Her oncologist was contacted by the emergency department provider. Outpatient follow up with established Oncologist. (12) Shortness of breath Is this a current diagnosis for this admission?: Yes Plan: Acute worsening of baseline dyspnea has resolved. She has chronic shortness of breath on chronic oxygen 3 L/min with nasal cannula. Related to chronic congestive heart failure, advanced COPD, lung cancer, worsening anemia. CXR is benign. Remaining management as above. (13) Diarrhea Qualifiers: Diarrhea type: unspecified type Qualified Code(s): R19.7 - Diarrhea, unspecified Is this a current diagnosis for this admission?: Yes Plan: COVID and C. Diff negative Stool culture pending Possibly chemotherapy related. Supportive care/monitoring. (14) Suspected 2019 novel coronavirus infection Is this a current diagnosis for this admission?: Yes Plan: Rapid Covid negative. Although the patient's symptoms could be attributed to recent chemotherapy, give n her recent high risk travel, report of generalized fatigue, weakness, body aches, poor appetite, decreased sense of taste, and development of diarrhea, patient was tested for covid. Attempted to educate patient on continued importance of mask wearing and social distancing. Unfortunately, patient not receptive at this time. - Time Time Spent with patient: 25-34 minutes Medications reviewed and adjusted accordingly: Yes Anticipated Discharge Disposition: Home, Self Care Anticipated Discharge Timeframe: within 24 hours
[2020-09-25] MEDS: QUETIAPINE FUMARATE 100 MG TABLET PO SCH (22:04)
[2020-09-25] MEDS: MIRTAZAPINE 15 MG TABLET PO SCH (22:05)
[2020-09-25] MEDS: ATORVASTATIN CALCIUM 10 MG TABLET PO SCH (22:06)
[2020-09-26 05:51] LABS: HEMATOCRIT 27.9 % (36.0-47.0); HEMOGLOBIN 9.6 g/dL (12.0-15.5); MEAN CORPUSCULAR HEMOGLOBIN 29.7 pg (27.0-33.4); MEAN CORPUSCULAR HGB CONC 34.5 g/dL (32.0-36.0); MEAN CORPUSCULAR VOLUME 86 fl (80-97); RED BLOOD COUNT 3.24 10^6/uL (3.72-5.28)
[2020-09-26 06:02] LABS: ANION GAP 13 (5-19); BLOOD UREA NITROGEN 12 mg/dL (7-20); CARBON DIOXIDE 22 mmol/L (22-30); CHLORIDE 98 mmol/L (98-107); GLUCOSE 182 mg/dL (75-110); POTASSIUM 3.3 mmol/L (3.6-5.0)
[2020-09-26 06:12] LABS: CALCIUM 6.5 mg/dL (8.4-10.2)
[2020-09-26 06:13] LABS: PLATELET COUNT 46 10^3/uL (150-450)
[2020-09-26] MEDS: CALCIUM CARBONATE 500 MG TAB.CHEW PO SCH ×4 (08:21→22:16)
[2020-09-26] MEDS: INSULIN LISPRO 100 UNIT/ML 3 ML VIAL SUBCUT SCH ×4 (08:21→22:17)
[2020-09-26] MEDS ORDERED: POTASSIUM CHLORIDE 10 MEQ TABLET.ER PO ONE (09:59)
[2020-09-26] MEDS: FOLIC ACID 1 MG TABLET PO SCH (10:15)
[2020-09-26] MEDS: DABIGATRAN ETEXILATE 150 MG CAPSULE PO SCH ×2 (10:15→22:16)
[2020-09-26] MEDS: METOPROLOL SUCCINATE 25 MG TAB.SR.24H PO SCH (10:15)
[2020-09-26] MEDS: DILTIAZEM HCL 240 MG CAPSULE.CR PO SCH (10:15)
[2020-09-26] MEDS: NYSTATIN 500000 UNIT/5 ML UDCUP PO SCH ×3 (10:16→17:24)
[2020-09-26] MEDS: INSULIN GLARGINE,HUM.REC.ANLOG 1,000 UNIT/10 ML VIAL SUBCUT SCH (10:16)
[2020-09-26] MEDS: CALCIUM CARBONATE 600 MG/VITAMIN D3 400 UNIT TABLET PO SCH ×3 (10:19→17:23)
--- NOTE | 2020-09-26 19:13 | PDOC PROGRESS REPORT ---
Subjective Date:: 09/26/20 Subjective:: The patient is a 60-year-old female with a past medical history significant for lung cancer undergoing active chemotherapy (last dose 3 weeks ago), COPD, diastolic CHF, home O2 dependent at 3 L/min, chronic atrial fibrillation, insulin dependent diabetes mellitus, arthritis, and morbid obesity who was admitted 09/23/2020 with shortness of breath, pancytopenia, and multiple elect rolyte derangements. Patient was seen on afternoon rounds. She was found sitting up to the recliner, comfortably, on room air. She reports 1 episode of loose stool today which is reportedly her "normal." Otherwise, she states that she feels well and desires to discharge home. She reports improved energy/alertness. No difficulty with ambulating. She does complain of difficulty sleeping while at the hospital. Otherwise, she denies fever, chills, chest pain, palpitations, dyspnea, orthopne a, cough, abdominal pain, nausea and vomiting. She reports good appetite but is very unhappy with the hospital food. She has no other questions or concerns at this time. No concerns per nursing. Reason For Visit: ATRIAL FIBRILATION WITH RVR,SYMPTOMATIC ANEMIA Physical Exam Vital Signs: Temp Pulse Resp BP Pulse Ox 97.6 F 95 20 134/75 H 95 09/26/20 11:43 09/26/20 14:00 09/26/20 11:43 09/26/20 11:43 09/26/20 11:43 Intake & Output 09/25/20 09/26/20 09/27/20 06:59 06:59 06:59 Intake Total 1690 1687 600 Balance 1690 1687 600 Weight 92.5 kg 85.9 kg General appearance: PRESENT: no acute distress, obese, well-developed, well- nourished Head exam: PRESENT: atraumatic, normocephalic Eye exam: PRESENT: conjunctiva pink, EOMI, PERRLA. ABSENT: scleral icterus Mouth exam: PRESENT: moist, tongue midline Respiratory exam: PRESENT: clear to auscultation chad, symmetrical, unlabored, other - room air. ABSENT: rales, rhonchi, wheezes Cardiovascular exam: PRESENT: RRR. ABSENT: diastolic murmur, rubs, systolic murmur Vascular exam: PRESENT: normal capillary refill GI/Abdominal exam: PRESENT: normal bowel sounds, soft. ABSENT: distended, guarding, mass, organolmegaly, rebound, tenderness Rectal exam: PRESENT: deferred Extremities exam: PRESENT: full ROM. ABSENT: calf tenderness, clubbing, pedal edema Musculoskeletal exam: PRESENT: ambulatory Neurological exam: PRESENT: alert, awake, oriented to person, oriented to place, oriented to time, oriented to situation, CN II-XII grossly intact. ABSENT: motor sensory deficit Psychiatric exam: PRESENT: appropriate affect, normal mood. ABSENT: homicidal ideation, suicidal ideation Skin exam: PRESENT: dry, erythema - to bilateral ACs at prior IV sites (atopic dermatitis 2/2 tape), warm. ABSENT: cyanosis, rash Results Laboratory Results: 09/26/20 05:28 09/26/20 05:28 09/26/20 09/26/20 09/26/20 05:28 05:28 05:28 WBC 8.0 RBC 3.24 L Hgb 9.6 L Hct 27.9 L MCV 86 MCH 29.7 MCHC 34.5 RDW 18.0 H Plt Count 46 L Sodium 132.6 L Potassium 3.3 L Chloride 98 Carbon Dioxide 22 Anion Gap 13 BUN 12 Creatinine 0.94 Est GFR ( Amer) > 60 Glucose 182 H Calcium 6.5 L* Ionized Calcium Layne 0.83 L Magnesium PTH Intact 09/26/20 09/26/20 05:28 11:40 WBC RBC Hgb Hct MCV MCH MCHC RDW Plt Count Sodium Potassium Chloride Carbon Dioxide Anion Gap BUN Creatinine Est GFR ( Amer) Glucose Calcium Ionized Calcium Layne Magnesium 1.7 PTH Intact 613.5 H 09/23/20 09/23/20 09/23/20 21:16 21:16 21:16 Creatine Kinase 198 H CK-MB (CK-2) < 0.22 Troponin I 0.030 NT-Pro-B Natriuret Pep 2500 H Impressions: Chest X-Ray 09/23/20 21:19 IMPRESSION: No evidence of active intrathoracic disease. Assessment and Plan - Diagnosis (1) Symptomatic anemia Is this a current diagnosis for this admission?: Yes Plan: Symptoms have resolved. Hgb 5.7-> 9.4-> 8.7-> 9.6 Now s/p 2 units PRBC Occult stool negative. Have resumed Pradaxa. Follow up CBC. Outpatient follow up w/ established Heme/Onc. (2) Pancytopenia Is this a current diagnosis for this admission?: Yes Plan: Improving. This is related to chemotherapy. WBCs 5-> 8 Hgb 5.7-> 9.40 s/p PRBC transfusion -> 8.7-> 9.6 Plt stable 48-> 45-> 38-> 46 Continue monitoring. Outpatient follow up w/ established Heme/Onc. (3) Atrial fibrillation with RVR Is this a current diagnosis for this admission?: Yes Plan: Resolved. Now she is in sinus rhythm. She has chronic paroxysmal atrial fibrillation. Monitor on telemetry. Continue home dose Diltiazem and Pradaxa. (4) CHF, chronic Qualifiers: Heart failure type: diastolic Qualified Code(s): I50.32 - Chronic diastolic (congestive) heart failure Is this a current diagnosis for this admission?: Yes Plan: Most likely chronic diastolic heart failure. No prior echocardiogram report for review. proBNP 2500 CXR is clear The patient has significant complex electrolyte imbalance; replacements as below. Monitor volume status. The patient appears to be euvolemic. Toprol XL 50 mg q12. Resume furosemide 20 mg qAM. Daily weights. (5) COPD (chronic obstructive pulmonary disease) Qualifiers: COPD type: unspecified COPD Qualified Code(s): J44.9 - Chronic obstructive pulmonary disease, unspecified Is this a current diagnosis for this admission?: Yes Plan: Stable and without exacerbation at this time. Continue long-acting inhaler. Continue home dose oxygen. Nebulizer treatment as needed. Encourage pulmonary toilet with incentive spirometer, flutter valve, and ambulation. (6) Chronic respiratory failure with hypoxia Is this a current diagnosis for this admission?: Yes Plan: Continue nasal oxygen 3 L/min. (7) Diabetes mellitus Qualifiers: Diabetes mellitus type: type 2 Diabetes mellitus [employer] insulin use: with mcc use Diabetes mellitus complication status: without complication Qualified Code(s): E11.9 - Type 2 diabetes mellitus without complications; Z79.4 - [employer] (current) use of insulin Is this a current diagnosis for this admission?: Yes Plan: A1C 5.4% Hold Metformin. Reduce Lantus insulin dose to avoid hypoglycemia. Patient is placed on a consistent carb diet. Accu-Cheks before meals and at bedtime with Humalog for sliding scale coverage. Hypoglycemia protocol in place. (8) Hypocalcemia Is this a current diagnosis for this admission?: Yes Plan: Trending up; 5.4-> 5.6-> 6.1-> 6.5 Ionized Ca 0.83 Corrected Ca 7.1 Asymptomatic. PTH elevated Vit D pending Magnesium 1.7 IV followed by oral replacement. Increased Calcium/Vit D supplement today Follow up chemistry Outpatient Heme/Onc follow up. (9) Hypokalemia Is this a current diagnosis for this admission?: Yes Plan: Additional oral replacement today. Follow up chemistry. (10) Hypomagnesemia Is this a current diagnosis for this admission?: Yes Plan: Replete; magnesium 0.6-> 1.4-> 1.8-> 1.7 (11) Metastatic cancer to lung Qualifiers: Laterality: unspecified laterality Qualified Code(s): C78.00 - Secondary malignant neoplasm of unspecified lung Is this a current diagnosis for this admission?: Yes Plan: Patient is receiving active chemotherapy. Her oncologist was contacted by the emergency department provider. Outpatient follow up with established Oncologist. (12) Shortness of breath Is this a current diagnosis for this admission?: Yes Plan: Acute worsening of baseline dyspnea has resolved. She has chronic shortness of breath on chronic oxygen 3 L/min with nasal cannula. Related to chronic congestive heart failure, advanced COPD, lung cancer, worsening anemia. CXR is benign. Remaining management as above. (13) Diarrhea Qualifiers: Diarrhea type: unspecified type Qualified Code(s): R19.7 - Diarrhea, u nspecified Is this a current diagnosis for this admission?: Yes Plan: COVID and C. Diff negative Stool culture pending Possibly chemotherapy related. Supportive care/monitoring. (14) Suspected 2019 novel coronavirus infection Is this a current diagnosis for this admission?: Yes Plan: Rapid Covid negative. Although the patient's symptoms could be attributed to recent chemotherapy, given her recent high risk travel, report of generalized fatigue, weakness, body aches, poor appetite, decreased sense of taste, and development of diarrhea, patient was tested for covid. Attempted to educate patient on continued importance of mask wearing and social distancing. Unfortunately, patient not receptive at this time. - Time Time Spent with patient: 25-34 minutes Medications reviewed and adjusted accordingly: Yes Anticipated Discharge Disposition: Home, Self Care Anticipated Discharge Timeframe: within 24 hours - pending improved Ca
[2020-09-26] MEDS ORDERED: METOPROLOL SUCCINATE 25 MG TAB.SR.24H PO SCH (22:00)
[2020-09-26] MEDS ORDERED: DIPHENHYDRAMINE HCL 25 MG CAPSULE PO SCH (22:00)
[2020-09-26] MEDS: ATORVASTATIN CALCIUM 10 MG TABLET PO SCH (22:16)
[2020-09-26] MEDS: QUETIAPINE FUMARATE 100 MG TABLET PO SCH (22:16)
[2020-09-26] MEDS: METOPROLOL SUCCINATE 50 MG TAB.SR.24H PO SCH (22:17)
[2020-09-26] MEDS: MIRTAZAPINE 15 MG TABLET PO SCH (22:17)
[2020-09-27] MEDS: NYSTATIN 500000 UNIT/5 ML UDCUP PO SCH ×4 (01:24→17:37)
[2020-09-27 06:11] LABS: ALBUMIN 3.1 g/dL (3.5-5.0); ALKALINE PHOSPHATASE 90 U/L (38-126); ANION GAP 10 (5-19); ASPARTATE AMINO TRANSFERASE 37 U/L (14-36); BILIRUBIN,DIRECT 0.3 mg/dL (0.0-0.4); BILIRUBIN,TOTAL 0.6 mg/dL (0.2-1.3); BLOOD UREA NITROGEN 9 mg/dL (7-20); CARBON DIOXIDE 24 mmol/L (22-30); CHLORIDE 99 mmol/L (98-107); GLUCOSE 133 mg/dL (75-110); POTASSIUM 3.2 mmol/L (3.6-5.0); TOTAL PROTEIN 5.7 g/dL (6.3-8.2)
[2020-09-27 06:19] LABS: CALCIUM 6.7 mg/dL (8.4-10.2)
[2020-09-27] MEDS: INSULIN LISPRO 100 UNIT/ML 3 ML VIAL SUBCUT SCH ×3 (08:58→16:15)
[2020-09-27] MEDS: CALCIUM CARBONATE 500 MG TAB.CHEW PO SCH ×3 (08:58→17:36)
[2020-09-27] MEDS ORDERED: (PENDING PHARMACY ID) (Potassium Chloride [Klor-Con M20] 20 MEQ Tab.Er.Prt) PO SCH (10:00)
[2020-09-27] MEDS: FOLIC ACID 1 MG TABLET PO SCH (10:45)
[2020-09-27] MEDS: DILTIAZEM HCL 240 MG CAPSULE.CR PO SCH (10:45)
[2020-09-27] MEDS: DABIGATRAN ETEXILATE 150 MG CAPSULE PO SCH (10:46)
[2020-09-27] MEDS: METOPROLOL SUCCINATE 50 MG TAB.SR.24H PO SCH (10:46)
[2020-09-27] MEDS: POTASSIUM CHLORIDE 10 MEQ TABLET.ER PO SCH ×2 (10:46→17:37)
[2020-09-27] MEDS: CALCIUM CARBONATE 600 MG/VITAMIN D3 400 UNIT TABLET PO SCH ×2 (10:51→17:36)
[2020-09-27] MEDS: INSULIN GLARGINE,HUM.REC.ANLOG 1,000 UNIT/10 ML VIAL SUBCUT SCH (11:00)
[2020-09-27 17:25] LABS: ANION GAP 12 (5-19); BLOOD UREA NITROGEN 12 mg/dL (7-20); CALCIUM 7.6 mg/dL (8.4-10.2); CARBON DIOXIDE 25 mmol/L (22-30); CHLORIDE 96 mmol/L (98-107); GLUCOSE 135 mg/dL (75-110); POTASSIUM 3.7 mmol/L (3.6-5.0)
[2020-09-27 18:27] VITALS: BP 138/77
--- NOTE | 2020-09-27 18:47 | PDOC DISCHARGE SUMMARY ---
Impression - Admit/DC Date/PCP Admission Date/Primary Care Provider: 09/23/20 23:55 STEVE XAVIER MD Discharge Date: 09/27/20 - Discharge Diagnosis (1) Symptomatic anemia Is this a current diagnosis for this admission?: Yes (2) Pancytopenia Is this a current diagnosis for this admission?: Yes (3) Atrial fibrillation with RVR Is this a current diagnosis for this admission?: Yes (4) CHF, chronic Is this a current diagnosis for this admission?: Yes (5) COPD (chronic obstructive pulmonary disease) Is this a current diagnosis for this admission?: Yes (6) Chronic respiratory failure with hypoxia Is this a current diagnosis for this admission?: Yes (7) Diabetes mellitus Is this a current diagnosis for this admission?: Yes (8) Hypocalcemia Is this a current diagnosis for this admission?: Yes (9) Hypokalemia Is this a current diagnosis for this admission?: Yes (10) Hypomagnesemia Is this a current diagnosis for this admission?: Yes (11) Metastatic cancer to lung Is this a current diagnosis for this admission?: Yes (12) Shortness of breath Is this a current diagnosis for this admission?: Yes (13) Diarrhea Is this a current diagnosis for this admission?: Yes (14) Suspected 2019 novel coronavirus infection Is this a current diagnosis for this admission?: Yes - Additional Information Discharge Diet: Diabetic Discharge Activity: Activity As Tolerated, Balance Activity w/Rest, Slowly Increase Activity Referrals: STEVE XAVIER MD [Primary Care Provider] - Follow up as needed (Follow up within 1 week.) Prescriptions: Calcium Carbonate/Vitamin D3 [Caltrate 600-Vit D3 400 Tablet] 2 tab PO BID #120 tablet Home Medications: Dabigatran Etexilate Mesylate [Pradaxa 150 mg Capsule] 150 mg PO Q12 09/24/20 Diltiazem HCl [Cardizem Cd 240 mg Capsule.cr] 1 cap.sr PO DAILY 09/24/20 Esomeprazole Magnesium 40 mg PO DAILY 09/24/20 Famotidine 40 mg PO DAILY 09/24/20 Folic Acid 1 mg PO DAILY 09/24/20 Furosemide [Lasix 20 mg Tablet] 20 mg PO DAILY 09/24/20 Insulin Aspart [Novolog Flexpen] 0 unit SUBCUT .SLD SCALE 09/24/20 Insulin Glargine,Hum.rec.anlog [Lantus Insulin 100 Unit/mL Insulin Pen] 32 units SQ DAILY 09/24/20 Metformin HCl [Metformin HCl ER] 1,000 mg PO BID 09/24/20 Metoprolol Succinate [Toprol Xl] 100 mg PO DAILY 09/24/20 Mirtazapine [Remeron 15 mg Tablet] 15 mg PO DAILY 09/24/20 Naloxone HCl [Narcan] 4 mg NS ASDIR PRN 09/24/20 Nystatin [Mycostatin 759629 Unit/1 ml Susp 60 ml Btl] 5 ml PO QID 09/24/20 Omeprazole 40 mg PO DAILY 09/24/20 Potassium Chloride [Klor-Con M20] 20 meq PO BID 09/24/20 Pravastatin Sodium 40 mg PO DAILY 09/24/20 Quetiapine Fumarate 300 mg PO DAILY 09/24/20 Varenicline Tartrate [Chantix 1 mg Tablet] 1 mg PO BID 09/24/20 Calcium Carbonate/Vitamin D3 [Caltrate 600-Vit D3 400 Tablet] 2 tab PO BID #120 tablet 09/27/20 History of Present Illiness History of Present Illness: Per H&P by Dr. Ruiz: MEE LOTT is a 60 year old female She is suffering from multiple medical problems including lung cancer under active chemotherapy, COPD, congestive heart failure secondary to diastolic dysfunction, chronic atrial fibrillation, most likely paroxysmal, she is chronically oxygen dependent with 3 L/min nasal oxygen. For the last 2 days she has progressive shortness of breath. Eventually the shortness of breath got so bad that she requested an ambulance to be called. She received 25 mg intravenous diltiazem from EMS for atrial fibrillation with rapid ventricular response. When she arrived she was feeling better. When EKG was done she was in sinus rhythm. She was found to be significantly anemic and had complex electrolyte imbalance. The patient is receiving active chemotherapy now for couple weeks. She was diagnosed with lung cancer during the fall. She received radiation therapy. She did not have any surgery. The cancer is metastatic to her bone. For the last couple days she lost her appetite. She was barely eating but she was drinking. Because she was not eating much she did not take her insulin. When I saw her she appeared to be chronically deconditioned but she did not appear to be in any acute respiratory distress with nasal oxygen. She had no pain. Hospital Course Hospital Course: (1) Symptomatic anemia Symptoms have resolved. Hgb 5.7-> 9.4-> 8.7-> 9.6 Now s/p 2 units PRBC Occult stool negative. Have resumed Pradaxa. Outpatient follow up w/ established Heme/Onc. (2) Pancytopenia Improving. This is related to chemotherapy. WBCs 5-> 8 Hgb 5.7-> 9.40 s/p PRBC transfusion -> 8.7-> 9.6 Plt stable 48-> 45-> 38-> 46 Outpatient follow up w/ established Heme/Onc. (3) Atrial fibrillation with RVR Resolved. Now she is in sinus rhythm. She has chronic paroxysmal atrial fibrillation. Monitor on telemetry. Continue home dose Diltiazem and Pradaxa. (4) CHF, chronic Most likely chronic diastolic heart failure. No prior echocardiogram report for review. proBNP 2500 CXR is clear The patient has significant complex electrolyte imbalance; replacements as below. Monitor volume status. The patient appears to be euvolemic. Toprol XL 50 mg q12. Resume home dose furosemide 20 mg qAM. Daily weights. (5) COPD (chronic obstructive pulmonary disease) Stable and without exacerbation at this time. Continue long-acting inhaler. Continue home dose oxygen. Encourage pulmonary toilet with incentive spirometer, flutter valve, and ambulation. Did not require antibiotics or steroid therapy. (6) Chronic respiratory failure with hypoxia Continue nasal oxygen 3 L/min. (7) Diabetes mellitus A1C 5.4% Consistent carb diet. Resume outpatient regimen. (8) Hypocalcemia Trending up; 5.4-> 5.6-> 6.1-> 6.5-> 7.6 Corrected Ca 8.3 Asymptomatic. PTH elevated Vit D pending Magnesium 1.7 Received IV and oral replacement. Continue Calcium/Vit D supplement following discharge. Recommend follow up chemistry Outpatient Heme/Onc follow up. (9) Hypokalemia Replete. Continue home dose oral supplementation. Recommend follow up chemistry in 1 week. (10) Hypomagnesemia Replete; magnesium 0.6-> 1.4-> 1.8-> 1.7 (11) Metastatic cancer to lung Patient is receiving active chemotherapy. Her oncologist was contacted by the emergency department provider. Outpatient follow up with established Oncologist. (12) Shortness of breath Acute worsening of baseline dyspnea has resolved. She has chronic shortness of breath on chronic oxygen 3 L/min with nasal zia jimmie. Related to chronic congestive heart failure, advanced COPD, lung cancer, worsening anemia. CXR is benign. Remaining management as above. (13) Diarrhea COVID and C. Diff negative Stool culture is negative. Likely chemotherapy related. Supportive care. (14) Suspected 2019 novel coronavirus infection Ruled out. Rapid Covid negative. Although the patient's symptoms could be attributed to recent chemotherapy, given her recent high risk travel, report of generalized fatigue, weakness, body aches, poor appetite, decreased sense of taste, and development of diarrhea, patient was tested for covid. Attempted to educate patient on continued importance of mask wearing and social distancing. Unfortunately, patient remains unreceptive at this time. Physical Exam Vital Signs: Temp Pulse Resp BP Pulse Ox 97.7 F 88 19 138/77 H 98 09/27/20 18:24 09/27/20 18:24 09/27/20 18:24 09/27/20 18:24 09/27/20 18:24 Intake & Output 09/26/20 09/27/20 09/28/20 06:59 06:59 06:59 Intake Total 1687 1050 1070 Balance 1687 1050 1070 Weight 85.9 kg 86.5 kg General appearance: PRESENT: no acute distress, morbidly obese, well-developed, well-nourished Head exam: PRESENT: atraumatic, normocephalic Eye exam: PRESENT: conjunctiva pink, EOMI, PERRLA. ABSENT: scleral icterus Mouth exam: PRESENT: moist, tongue midline Respiratory exam: PRESENT: clear to auscultation chad, symmetrical, unlabored, other - Room air. ABSENT: rales, rhonchi, wheezes Cardiovascular exam: PRESENT: RRR. ABSENT: diastolic murmur, rubs, systolic murmur Vascular exam: PRESENT: normal capillary refill GI/Abdominal exam: PRESENT: normal bowel sounds, soft. ABSENT: distended, g uarding, mass, organolmegaly, rebound, tenderness Rectal exam: PRESENT: deferred Extremities exam: PRESENT: full ROM. ABSENT: calf tenderness, clubbing, pedal edema Musculoskeletal exam: PRESENT: ambulatory Neurological exam: PRESENT: alert, awake, oriented to person, oriented to place, oriented to time, oriented to situation, CN II-XII grossly intact. ABSENT: motor sensory deficit Psychiatric exam: PRESENT: appropriate affect, normal mood. ABSENT: homicidal ideation, suicidal ideation Skin exam: PRESENT: dry, erythema - to bilateral ACs at prior IV sites (atopic dermatitis 2/2 tape), intact, warm. ABSENT: cyanosis, rash Results Laboratory Results: WBC 8.0 10^3/uL (4.0-10.5) 09/26/20 05:28 RBC 3.24 10^6/uL (3.72-5.28) L 09/26/20 05:28 Hgb 9.6 g/dL (12.0-15.5) L 09/26/20 05:28 Hct 27.9 % (36.0-47.0) L 09/26/20 05:28 MCV 86 fl (80-97) 09/26/20 05:28 MCH 29.7 pg (27.0-33.4) 09/26/20 05:28 MCHC 34.5 g/dL (32.0-36.0) 09/26/20 05:28 RDW 18.0 % (11.5-14.0) H 09/26/20 05:28 Plt Count 46 10^3/uL (150-450) L 09/26/20 05:28 Lymph % (Auto) Not Reportable 09/25/20 05:14 [place] % (Auto) Not Reportable 09/25/20 05:14 Eos % (Auto) Not Reportable 09/25/20 05:14 Baso % (Auto) Not Reportable 09/25/20 05:14 Absolute Neuts (auto) Not Reportable 09/25/20 05:14 Absolute Lymphs (auto) Not Reportable 09/25/20 05:14 Absolute Monos (auto) Not Reportable 09/25/20 05:14 Absolute Eos (auto) Not Reportable 09/25/20 05:14 Absolute Basos (auto) Not Reportable 09/25/20 05:14 Total Counted 100 09/25/20 05:14 Seg Neutrophils % Not Reportable 09/25/20 05:14 Seg Neuts % (Manual) 73 % (42-78) 09/25/20 05:14 Band Neutrophils % 2 % (3-5) L 09/24/20 14:54 Lymphocytes % (Manual) 13 % (13-45) 09/25/20 05:14 Monocytes % (Manual) 13 % (3-13) 09/25/20 05:14 Eosinophils % (Manual) 0 % (0-6) 09/25/20 05:14 Basophils % (Manual) 0 % (0-2) 09/25/20 05:14 Metamyelocytes % 1 % (0-1) 09/25/20 05:14 Abs Neuts (Manual) 5.0 10^3/uL (1.7-8.2) 09/25/20 05:14 Abs Lymphs (Manual) 0.9 10^3/uL (0.5-4.7) 09/25/20 05:14 Abs Monocytes (Manual) 0.9 10^3/uL (0.1-1.4) 09/25/20 05:14 Absolute Eos (Manual) 0.0 10^3/uL (0.0-0.6) 09/25/20 05:14 Abs Basophils (Manual) 0.0 10^3/uL (0.0-0.2) 09/25/20 05:14 Nucleated RBCs 1 /100 WBC (0) 09/24/20 14:54 Toxic Granulation 1+ 09/25/20 05:14 Platelet Comment DECREASED 09/25/20 05:14 Polychromasia SLIGHT 09/24/20 14:54 Poikilocytosis 1+ 09/25/20 05:14 Anisocytosis 1+ 09/25/20 05:14 Tear Drop Cells SLIGHT 09/25/20 05:14 Ovalocytes 1+ 09/25/20 05:14 Schistocytes SLIGHT 09/23/20 21:16 PT 16.3 SEC (11.4-15.4) H 09/23/20 21:16 INR 1.29 09/23/20 21:16 Sodium 133.0 mmol/L (137-145) L 09/27/20 16:14 Potassium 3.7 mmol/L (3.6-5.0) 09/27/20 16:14 Chloride 96 mmol/L (98-107) L 09/27/20 16:14 Carbon Dioxide 25 mmol/L (22-30) 09/27/20 16:14 Anion Gap 12 (5-19) 12/16/20 16:14 BUN 12 mg/dL (7-20) 09/27/20 16:14 Creatinine 0.91 mg/dL (0.52-1.25) 09/27/20 16:14 Est GFR ( Amer) > 60 (>60) 09/27/20 16:14 Est GFR (Non-Af Amer) Cancelled 09/25/20 05:14 Est GFR (MDRD) Non-Af > 60 (>60) 09/27/20 16:14 Glucose 135 mg/dL (75-110) H 09/27/20 16:14 POC Glucose 145 mg/dL (70-110) H 09/27/20 16:02 Hemoglobin A1c % 5.4 % (4.7-6.0) 09/25/20 05:14 Calcium 7.6 mg/dL (8.4-10.2) L 09/27/20 16:14 Ionized Calcium Layne 0.83 mmol/L (1.14-1.30) L 09/26/20 05:28 Phosphorus 2.7 mg/dL (2.5-4.5) 09/25/20 05:14 Magnesium 1.7 mg/dL (1.6-2.3) 09/26/20 05:28 Total Bilirubin 0.6 mg/dL (0.2-1.3) 09/27/20 05:20 Direct Bilirubin 0.3 mg/dL (0.0-0.4) 09/27/20 05:20 Neonat Total Bilirubin Not Reportable 09/27/20 05:20 Neonat Direct Bilirubin Not Reportable 09/27/20 05:20 Neonat Indirect Bili Not Reportable 09/27/20 05:20 AST 37 U/L (14-36) H 09/27/20 05:20 ALT 28 U/L (<35) 09/27/20 05:20 Alkaline Phosphatase 90 U/L (38-126) 09/27/20 05:20 Creatine Kinase 198 U/L (30-135) H 09/23/20 21:16 CK-MB (CK-2) < 0.22 ng/mL (<4.55) 09/23/20 21:16 Troponin I 0.030 ng/mL 09/23/20 21:16 NT-Pro-B Natriuret Pep 2500 pg/mL (<125) H 09/23/20 21:16 Total Protein 5.7 g/dL (6.3-8.2) L 09/27/20 05:20 Albumin 3.1 g/dL (3.5-5.0) L 09/27/20 05:20 EGFR Cancelled 09/25/20 05:14 Vitamin D 25-Hydroxy < 12.8 ng/mL (14.7-68.3) L 09/26/20 05:28 TSH 1.66 uIU/mL (0.47-4.68) 09/25/20 05:14 PTH Intact 613.5 pg/mL (10.0-65.0) H 09/26/20 11:40 POC Stool Occult Blood NEGATIVE (NEGATIVE) 09/23/20 23:05 Stool for White Cells NO WBCs SEEN 09/25/20 12:39 Stl C. Difficile GDH Ag NEGATIVE (NEGATIVE) 09/25/20 12:39 Stl C.difficile Tox A&B NEGATIVE (NEGATIVE) 09/25/20 12:39 Influenza A (RT-PCR) NEGATIVE (NEGATIVE) 09/25/20 13:10 Influenza B (RT-PCR) NEGATIVE (NEGATIVE) 09/25/20 13:10 RSV (RT-PCR) NEGATIVE (NEGATIVE) 09/25/20 13:10 SARS-CoV-2 Rap RNA(RT-PCR) NEGATIVE (NEGATIVE) 09/25/20 13:10 Blood Type O POSITIVE 09/23/20 22:19 Blood Type Confirm O POSITIVE 09/23/20 23:56 Antibody Screen NEGATIVE 09/23/20 22:19 Crossmatch See Detail 09/23/20 22:19 09/23/20 09/23/20 21:16 21:16 CK-MB (CK-2) < 0.22 Troponin I 0.030 NT-Pro-B Natriuret Pep 2500 H Impressions: Chest X-Ray 09/23/20 21:19 IMPRESSION: No evidence of active intrathoracic disease. Plan Plan of Treatment: Patient is discharged home in stable condition. She is advised follow-up with her primary care provider within 1 week. Recommend follow up Chemistry. She is instructed to contact her oncologist, notify them of her admission, and follow up as directed. Is instructed to drink plenty of fluids. She is advised take her medications as prescribed. She was strongly encouraged to follow social distancing, handwashing, and mask wearing guidelines to reduce risk of david coronavirus. She is encouraged to return to the emergency department, as needed, for concerning symptoms. Time Spent: Greater than 30 Minutes Stroke Is this a Stroke Patient?: No Acute Heart Failure Is this a Heart Failure Patient?: No
[2020-10-02 06:56] LABS: POTASSIUM 2.8 mmol/L (3.6-5.0)
== END 2020-09-27 19:30 | disposition home or self-care (01) | DRG 809 ==
LOC: ER 21:11 → EH 23:55 → 4S 09-24 01:43
PROVIDERS: ADMIT Internal Medicine; ATTEND Registered Nurse
PROC: 30233N1 Transfusion of Nonautologous Red Blood Cells into Peripheral Vein, Percutaneous Approach (ICD-10-PCS; principal; 2020-09-24)
DX: D61.810 Antineoplastic chemotherapy induced pancytopenia (principal); I50.32 Chronic diastolic (congestive) heart failure; J96.11 Chronic respiratory failure with hypoxia; C34.90 Malignant neoplasm of unspecified part of unspecified bronchus or lung; C79.51 Secondary malignant neoplasm of bone; E83.51 Hypocalcemia; Z99.81 Dependence on supplemental oxygen; E11.9 Type 2 diabetes mellitus without complications; E66.01 Morbid (severe) obesity due to excess calories; J44.9 Chronic obstructive pulmonary disease, unspecified; E87.6 Hypokalemia; E83.42 Hypomagnesemia; I48.0 Paroxysmal atrial fibrillation; H26.9 Unspecified cataract; M19.90 Unspecified osteoarthritis, unspecified site; F17.200 Nicotine dependence, unspecified, uncomplicated; T45.1X5A Adverse effect of antineoplastic and immunosuppressive drugs, initial encounter; R19.7 Diarrhea, unspecified; Z11.59 Encounter for screening for other viral diseases; Z79.01 Long term (current) use of anticoagulants; Z79.4 Long term (current) use of insulin; Z79.899 Other long term (current) drug therapy; Z88.6 Allergy status to analgesic agent; Z68.33 Body mass index [BMI] 33.0-33.9, adult; Z20.828 Contact with and (suspected) exposure to other viral communicable diseases
CPT/HCPCS: 36415; 36430; 71045; 80048; 80053; 82270; 82306; 82330; 82550; 82553; 82962; 83036; 83735; 83880; 83970; 84100; 84443; 84484; 85025; 85027; 85610; 86850; 86900; 86901; 86920; 87045; 87205; 87324; 87449; 89055; 93005; 93010; 94667; 94668; 94799; 96365; 99285; J0610; 0241U; C9803; J1815; J3475; J3480; J3490; J7050; P9016